=== PATIENT | female | born 1955 | race Caucasian/White ===

== ENCOUNTER → 2016-10-29 | Outpatient (CLI) | payer OTHER ==
[~2016-10-29] MED LIST: CALC-77 PO; CELE100C PO; GLUC1CAP41 PO; KRIL1CAP18 PO; LORA10CA PO; MULT-208 PO; TELM1TAB3 PO
[2016-10-29 13:28] LABS: BASO % 1 % (0-3); EOS % 1 % (0-3); HEMATOCRIT 40.4 % (36.0-47.0); HEMOGLOBIN 13.6 g/dL (12.0-15.5); LYMPH % 30 % (24-48); MEAN CORPUSCULAR HEMOGLOBIN 31 pg (25-35); MEAN CORPUSCULAR HGB CONC 34 g/dL (31-37); MEAN CORPUSCULAR VOLUME 91 fL (79-100); MONO % 6 % (0-9); NEUT % 63 % (31-73); PLATELET COUNT 155 x10^3/uL (140-400); RED BLOOD COUNT 4.45 x10^6/uL (3.50-5.40); RED CELL DISTRIBUTION WIDTH 12.7 % (11.5-14.5); WHITE BLOOD COUNT 6.6 x10^3/uL (4.0-11.0)
[2016-10-29 13:38] LABS: ALBUMIN 3.6 g/dL (3.4-5.0); CALCIUM 9.2 mg/dL (8.5-10.1); POTASSIUM 3.9 mmol/L (3.5-5.1)
[2016-10-29 13:41] LABS: PROTHROMBIN TIME PATIENT 12.1 SEC (11.7-14.0)
--- NOTE | 2016-10-29 13:49 | EKG ---
[facility] [address] [place] [address] Test Date: 2016-10-29 Test Time: 13:51:20 Pat Name: TEGAN GOYAL Department: Room: Gender: F Executive Assistant: KELSEY MCGILL : 1955 Requested By: ADAM ROSAS Order Number: [id number] Reading MD: Alirio Troncoso Measurements Intervals Haines Rate: 82 P: 0 VA: 168 QRS: 24 QRSD: 74 T: 66 QT: 338 QTc: 398 Interpretive Statements SINUS RHYTHM CANNOT RULE OUT CRISTA-SEPTAL INFARCT Electronically Signed On 10-31-2016 13:06:58 CDT by Alirio Troncoso
[2016-10-29 14:25] LABS: BILIRUBIN,URINE NEGATIVE (NEG); GLUCOSE,URINE NEGATIVE (NEG); NITRITE,URINE NEGATIVE (NEG); PH,URINE 6.5; PROTEIN,URINE NEGATIVE (NEG-TRACE); UROBILINOGEN,URINE 0.2 mg/dL (0.2 mg/dL)
[2016-10-29 14:42] LABS: BACTERIA,URINE FEW /HPF (0-FEW); RBC,URINE 0 /HPF (0-2); SQUAMOUS EPITHELIAL CELL,UR MOD /LPF
--- NOTE | 2016-10-29 15:31 | RAD ---
Indication preop. Anticipated orthopedic surgery targeted to the right knee. PA and lateral views of the chest were obtained. No prior imaging is available. The lungs are clear. There is no pleural fluid or pneumothorax. The bony structures appear grossly intact. The heart and pulmonary vessels appear normal. IMPRESSION: No acute or significant finding seen in the chest
== END | disposition home or self-care (01) ==
LOC: SURGPAT 12:41
PROVIDERS: ATTEND Orthopaedic Surgery
DX: Z01.818 Encounter for other preprocedural examination (principal)
CPT/HCPCS: 36415; 71020; 80048; 81001; 82040; 85027; 85610; 85651; 85730; 87086; 87641; 93005

== ENCOUNTER 2016-11-10 10:32 | Inpatient (IN) | payer OTHER ==
[~2016-11-10] VITALS: Ht 175.3 cm; Wt 114.3 kg
[~2016-11-10 10:32] MED LIST changes: +CELECOXIB 200 MG CAPSULE. PO PRN; +HYDROcodone/APAP 7.5/325MG 1 TAB TABLET PO PRN; +HYDROmorphone 2 MG/ML VIAL IV PRN; +IV RINGERS,LACTATED 1000ML 1,000 ML IV SCH; +LIDOCAINE 1% 1 ML SYRINGE. ID PRN; +MORPHINE SULFATE 2 MG/ML DISP.SYRIN. IV PRN; +ONDANSETRON PF 4 MG/2 ML VIAL. IV PRN; +PROCHLORPERAZINE 10 MG/2 ML VIAL. IV PRN; +TRANEXAMIC ACID 1,000 MG in IV NS 50ML -- 1ST BAG INJ ONE; +TRANEXAMIC ACID 1,000 MG in IV NS 50ML -- 2ND BAG INJ ONE; +TV=100ml MORPHINE 5 MG, KETOROLAC 30 MG, ROPIVacaine 0.5% PF 60 ML, EPINEPH... INT ART ONE; +fentaNYL PF VIAL 100 MCG/2 ML VIAL IV PRN
[2016-11-10 11:29] LABS: PROTHROMBIN TIME PATIENT 12.7 SEC (11.7-14.0)
[2016-11-10] MEDS ORDERED: PROPOFOL 20 ML IV ONE (11:52)
[2016-11-10] MEDS ORDERED: LIDOCAINE 2% PF Vial for OR 5 ML VIAL. ONE (11:52)
[2016-11-10] MEDS ORDERED: DEXAMETHASONE SOD PHOS 20 MG/5 ML VIAL. ONE (11:52)
[2016-11-10] MEDS ORDERED: ONDANSETRON PF 4 MG/2 ML VIAL. ONE (11:52)
[2016-11-10] MEDS ORDERED: FAMOTIDINE 20 MG/2 ML VIAL ONE (11:53)
[2016-11-10] MEDS ORDERED: fentaNYL PF VIAL 100 MCG/2 ML VIAL ONE (11:54)
[2016-11-10] MEDS ORDERED: MIDAZOLAM HCL/PF 2 MG/2 ML VIAL. ONE (11:54)
[2016-11-10] MEDS ORDERED: ROCURONIUM 50 MG/5 ML VIAL. ONE (11:55)
[2016-11-10] MEDS ORDERED: ePHEDrine PF IN SALINE 50 MG/5 ML DISP.SYRIN IV ONE (13:10)
[2016-11-10] MEDS ORDERED: MORPHINE SULFATE 10 MG/ML VIAL. ONE (13:32)
[2016-11-10] MEDS ORDERED: SEVOFLURANE > 120 MINUTES. IH ONE (14:11)
[2016-11-10] MEDS ORDERED: GLYCOPYRROLATE 1 MG/5 ML VIAL. ONE (14:47)
[2016-11-10] MEDS ORDERED: NEOSTIGMINE METHYLSULFATE 5 MG/5 ML SYRINGE. ONE (14:48)
[2016-11-10] MEDS ORDERED: MORPHINE SULFATE 4 MG/ML DISP.SYRIN. IV PRN (15:30)
[2016-11-10] MEDS ORDERED: oxyCODONE/APAP 7.5/325 1 TAB TABLET PO PRN (15:30)
[2016-11-10] MEDS ORDERED: DEXTROSE 50% 25 GM / 50ML DISP.SYRIN. IV PRN (15:30)
[2016-11-10] MEDS ORDERED: ZOLPIDEM 5 MG TABLET. PO PRN (15:30)
[2016-11-10] MEDS ORDERED: 0.9 % SODIUM CHLORIDE 10 ML DISP.SYRIN. IV PRN (15:30)
[2016-11-10] MEDS ORDERED: oxyCODONE/APAP 5/325 1 TAB TABLET PO PRN (15:30)
[2016-11-10] MEDS ORDERED: diphenhydrAMINE 50 MG/ML VIAL IV PRN (15:30)
[2016-11-10] MEDS ORDERED: fentaNYL PF VIAL 100 MCG/2 ML VIAL IV PRN ×2 (15:30)
[2016-11-10] MEDS ORDERED: traMADol 50 MG TABLET PO PRN ×2 (15:30)
[2016-11-10] MEDS ORDERED: MORPHINE SULFATE 2 MG/ML DISP.SYRIN. IV PRN (15:30)
[2016-11-10] MEDS ORDERED: HYDROcodone/APAP 10/325 1 TAB TABLET PO PRN (15:30)
[2016-11-10] MEDS ORDERED: ACETAMINOPHEN 325 MG TABLET. PO PRN (15:30)
[2016-11-10] MEDS ORDERED: PROCHLORPERAZINE 5 MG TABLET. PO PRN (15:30)
--- NOTE | 2016-11-10 15:41 | RAD ---
Indication postop. AP and lateral views of the right knee were obtained. Hemiarthroplasty is noted. No complication is seen. Postoperative changes are noted in the soft tissues. Some patellofemoral narrowing is noted.
--- NOTE | 2016-11-10 15:43 | PDOC ---
BRIEF OPERATIVE NOTE Date: Nov 10, 2016 Pre-Op Diagnosis Degenerative medial compartment right knee Post-Op Diagnosis Same with intact anterior cruciate ligament and lateral compartment Procedure Performed Right knee medial unicondylar arthroplasty Surgeon first ember Wilson Anesthesia Type: General Blood Loss 20 mL Specimens Obtained Cartilage surfaces to pathology Findings Above Complications None OPerative Note Operative indications: Patient is a 61-year-old female with right knee pain unresponsive to nonoperative measures including bracing injection activity modification and showing isolated medial compartment disease with mild patellofemoral degenerative changes and a perfectly preserved lateral compartment. I had gone over with her possibility of ongoing bracing which she had already failed, injections which were not giving her any relief and the possibility of knee arthroplasty, including possibility of medial unicondylar arthroplasty since she had good indications for this procedure with isolated medial compartment disease and an intact ACL. We talked about the possibility of total knee arthroplasty as well and the risks benefits postoperative course of both procedures, and the advantage of better knee kinematics with the unicondylar procedure due to retaining the anterior cruciate ligament. We also talked about the possibility of continued pain and instability nerve or blood vessel damage infection medical or other anesthetic complications among others and the expected recovery process and restrictions. All her questions were answered she wishes to proceed with operative evaluation and treatment having giving informed consent. Operative text: Patient procedure identified and verified, after adequate amounts of general endotracheal anesthesia was administered a right thigh tourniquet was placed, the dedicated unicondylar arthroplasty leg mosley was used and the right lower extremity prepped and draped in standard sterile fashion with all other bony prominences well-padded. After timeout was performed patient procedure identified and verified, the right lower extremity was exsanguinated by Esmarch bandage tourniquet inflated to 350 mmHg midline incision was made with a medial parapatellar approach and minimal fat pad was excised enough for evaluation of the medial joint which was noted to be severely degenerative as expected. Lateral compartment and anterior cruciate ligament were well preserved, osteophytes were removed from the medial femoral condyle and medial tibia area. The extra medullary cutting guide was placed in line with the tibial crest and second metatarsal and pinned in place. Tibial cut was made, laterally as possible on the intercondylar eminence preserving the anterior cruciate ligament and ensuring a level cut with no posterior cortical compromise. An oscillating saw was then used with medial collateral ligament protected, and the bone fragment was removed and sized for a trial tibial component. The intramedullary femoral guide was then drilled and placed and the femoral drill guide was placed to ensure the large central hole was drilled exactly on the midline of the medial femoral condyle. The distal femoral condyle was provisionally reamed and a trial femoral component placed. Spacers were used to conciliation court judge the overall ligament balance and a 3 mm spacer fit well in flexion and a 2 mm spacer in full extension. At this point I made a decision to recut the tibia removing another 2 mm and downsizing the tibial trial to a size C to eliminate any overhanging. An additional 1 mm was planed off distally and resulted in excellent ligament balance in flexion and extension with the trial femoral component in place. The distal femoral reaming guide was placed and reaming carried out and posterior condyle was shaped to remove any additional osteophyte. The femoral trial was then replaced with a 4 and then 5 mm spacer with the trial tibial tray and 5 mm noted to be the best combination of stability again with excellent flexion and extension ligament balance. Tibial tray was pinned and the keel cut was made any additional bone was removed. Trial components were removed irrigation was carried out normal saline solution and bleeding points were controlled with electrocautery and the following Biomet Herriman unicondylar components were cemented in place consisting of a size C right medial tibial tray which was compressed posteriorly driving the cement anteriorly and removed with a Gila to ensure no cement remained. The distal femur had been drilled to better ensure cement interdigitation and a size medium femoral component was impacted into place again removing any excess cement and was held in place with a 5 mm thick provisional spacer cement was dry. Thorough irrigation was carried out normal saline solution and based on excellent fit of the 5 mm thick spacer, a 5 mm medium sized meniscal bearing surface was popped into place and was noted to ride well be stable and provided excellent ligament stability in flexion and extension balance. Additional thorough irrigation carried out normal saline solution intra-articular mixture was injected into the capsule and surrounding tissues closure was accomplished with #2 Ethibond suture reinforced with a #1 Vicryl subcutaneous closure with buried Vicryl suture and subcuticular Monocryl Steri-Strips and Mastisol sterile dressings were applied patient was returned to recovery room having tolerated the procedure well ADAM ROSAS MD Nov 10, 2016 15:43
[2016-11-10] MEDS: fentaNYL PF VIAL 100 MCG/2 ML VIAL IV PRN ×3 (15:44→16:11)
[2016-11-10 16:40] VITALS: BP 130/64
[2016-11-10] MEDS: IV DEXTROSE 5 %-0.45 % NACL 1,000 ML IV SCH (17:21)
[2016-11-10 17:36] VITALS: BP 125/81
[2016-11-10 18:00] VITALS: BP 126/82
[2016-11-10] MEDS ORDERED: WARFARIN 7.5 MG TABLET. PO ONE (18:00)
[2016-11-10 18:30] VITALS: BP 138/82
[2016-11-10 20:38] VITALS: BP 146/71
[2016-11-10] MEDS: CELECOXIB 200 MG CAPSULE. PO SCH (20:45)
[2016-11-10 23:33] VITALS: BP 145/71
[2016-11-11] MEDS: IV DEXTROSE 5 %-0.45 % NACL 1,000 ML IV SCH ×3 (02:00→19:21)
[2016-11-11 03:14] VITALS: BP 128/66
[2016-11-11] MEDS ORDERED: MAGNESIUM HYDROXIDE 2,400 MG/30 ML ORAL.SUSP. PO PRN (06:00)
[2016-11-11 06:53] VITALS: BP 111/62
[2016-11-11 07:48] LABS: INR 1.1 (0.8-1.1); PROTHROMBIN TIME PATIENT 13.8 SEC (11.7-14.0)
[2016-11-11] MEDS: FERROUS SULFATE 325 MG TABLET. PO SCH ×2 (08:10→17:00)
[2016-11-11] MEDS: MULTIVITAMIN with MINERAL TABLET. PO SCH (08:11)
[2016-11-11] MEDS: CELECOXIB 200 MG CAPSULE. PO SCH ×2 (08:11→21:06)
[2016-11-11] MEDS: SENNOSIDES/DOCUSATE 8.6/50MG TABLET. PO SCH (08:11)
[2016-11-11] MEDS: hydroCHLOROthiazide 12.5 MG CAPSULE PO SCH (08:11)
[2016-11-11 08:15] VITALS: BP 130/77
[2016-11-11] MEDS: LOSARTAN POTASSIUM 50 MG TABLET. PO SCH (08:15)
[2016-11-11] MEDS: HYDROcodone/APAP 7.5/325MG 1 TAB TABLET PO PRN ×2 (12:16→21:06)
[2016-11-11] MEDS ORDERED: BISACODYL 10 MG SUPP.RECT. PR PRN (16:00)
[2016-11-11] MEDS ORDERED: WARFARIN 5 MG TABLET. PO ONE (16:00)
[2016-11-11 18:18] VITALS: BP 165/82
[2016-11-12] MEDS: HYDROcodone/APAP 7.5/325MG 1 TAB TABLET PO PRN ×3 (02:16→11:29)
[2016-11-12 02:27] VITALS: BP 104/49
[2016-11-12 05:30] VITALS: BP 137/86
[2016-11-12] MEDS: FERROUS SULFATE 325 MG TABLET. PO SCH (08:10)
[2016-11-12] MEDS: hydroCHLOROthiazide 12.5 MG CAPSULE PO SCH (08:10)
[2016-11-12] MEDS: CELECOXIB 200 MG CAPSULE. PO SCH (08:10)
[2016-11-12] MEDS: SENNOSIDES/DOCUSATE 8.6/50MG TABLET. PO SCH (08:10)
[2016-11-12] MEDS: MULTIVITAMIN with MINERAL TABLET. PO SCH (08:10)
[2016-11-12] MEDS: LOSARTAN POTASSIUM 50 MG TABLET. PO SCH (08:11)
[2016-11-12 08:31] LABS: INR 1.2 (0.8-1.1); PROTHROMBIN TIME PATIENT 14.2 SEC (11.7-14.0)
[2016-11-12 12:47] VITALS: BP 122/75
[2016-11-12] MEDS ORDERED: WARFARIN 5 MG TABLET. PO ONE (14:00)
--- NOTE | 2016-11-13 15:58 | PATHOLOGY ---
PATHOLOGY REPORT * * * * * * * * FINAL DIAGNOSIS: Segments of bone and soft tissue, Right knee medial unicondylar arthroplasty: - Advanced degenerative arthritis. (JPM:[email or web address]; 11/13/2016) REPORT ELECTRONICALLY SIGNED BY: Ross Godwin M.D. DATE/TIME: 11/13/2016 15:58 * * * * * * * * GROSS PATHOLOGY: The specimen is received in formalin labeled "Tegan Goyal, cartilage surfaces". Received is one half of a tibial plateau measuring 5.7 x 3.1 x 1.5 cm in greatest dimensions admixed with additional segments of light hernandez bone, yellow-hernandez lobulated tissue and white-hernandez fibrous tissue measuring 6.5 x 4.2 x 1.1 cm in aggregate dimensions. The articulating surface is pale hernandez and granular in appearance with evidence of eburnation. The specimen is submitted representatively in cassette A1, following decalcification. (CAA; 11/12/2016) INITIAL CPT CODE(S): A; 38813, 63021 Professional services performed [place] [facility] [address] Technical services performed by [facility] at [address] [place] [address]. SPECIMEN(S) RECEIVED: A.Cartilage surfaces CLINICAL HISTORY: DJD PATIENT: TEGAN GOYAL /AGE: 1 1955 (Age: 61) PATIENT #: [id number] ALT CASE #: SPECIMEN COLLECTION DATE: 11/10/2016 SPECIMEN RECEIVED DATE: 11/11/2016 [facility] [place] [address] - PHONE: [phone] * * * END OF REPORT * * *
--- NOTE | 2016-11-20 05:50 | ACF ---
Admission Forms Criteria PAIN MANAGEMENT GR Clinical Indications for Admission to Inpatient Care (Place 'X' for any and all applicable criteria): Hospital admission is needed for appropriate care of the patient because of 1 or more of the following are present (1)(2)(3)(4)(5): [X]I. Severe pain requiring acute inpatient management as indicated by 1 or more of the following (2)(5)(10): [X]a) Continuous or frequent (eg, every 2 to 4 hours) parenteral analgesics required [A] [ ]b) Necessity (ie, alternative approaches not effective) for analgesic regimen that can only be performed or initiated in inpatient setting [ ]II. Pain causing debilitation to the point of inability to function or be supported at any other level of care [ ]III. Severe side effects from pain medications as indicated by ANY ONE of the following (12)(13)(14)(15): [ ]a) Uncontrollable seizures [ ]b) Cardiac arrhythmias of immediate concern [ ]c) Dehydration that is severe or persistent [ ]d) Vomiting that is severe or persistent [ ]e) Altered mental status that is severe or persistent [ ]f) Obstipation with inadequate GI function to maintain nutrition The original [employer] content created by [employer] has been revised. The portions of the content which have been revised are identified through the use of italic text or in bold, and [employer] has neither reviewed nor approved the modified material. All other unmodified content is copyright [employer]. Please see references footnoted in the original [employer] edition 2016 Admission Criteria Met?: Yes NICOLÁS LUND Nov 20, 2016 05:50
== END 2016-11-12 14:56 | disposition home or self-care (01) | DRG 470 ==
LOC: OPSVCIP 10:32 → EDUNIT# 12:35 → 4 SOUTHEST 16:39
PROVIDERS: ADMIT Orthopaedic Surgery; ATTEND Orthopaedic Surgery
PROC: 0SRC0L9 Replacement of Right Knee Joint with Medial Unicondylar Synthetic Substitute, Cemented, Open Approach (ICD-10-PCS; principal; 2016-11-10 12:35)
DX: M17.11 Unilateral primary osteoarthritis, right knee (principal)
CPT/HCPCS: 36415; 73560; 85610; 86850; 86900; 86901; 88304; 88311; J0171; J0690; J0780; J1100; J1885; J2001; J2250; J2270; J2405; J2704; J2710; J2795; J3010; J3490; J7030; J7120; S0028; 97110; 97116; 97150; 97530; C1769